=== PATIENT | male | born 2000 | race Hispanic/Latino ===

== ENCOUNTER 2021-09-07 03:20 | Emergency (ER) | payer OTHER ==
[~2021-09-07] VITALS: Ht 170.2 cm; Wt 84.1 kg
[2021-09-07] MEDS ORDERED: FLUORESCEIN OPHTH 1 MG STRIP XX ONE (05:55)
[2021-09-07] MEDS ORDERED: PROPARACAINE 0.5% OPHTH SOL 15ML XX ONE (05:55)
[2021-09-07 06:36] VITALS: BP 133/62
[2021-09-07] MEDS ORDERED: BACIOIN23 OP (06:45)
== END 2021-09-07 06:54 | disposition home or self-care (01) ==
LOC: M ED 03:20
DX: S05.01XA Injury of conjunctiva and corneal abrasion without foreign body, right eye, initial encounter (principal); W26.8XXA Contact with other sharp object(s), not elsewhere classified, initial encounter; Y92.099 Unspecified place in other non-institutional residence as the place of occurrence of the external cause; Y93.89 Activity, other specified